=== PATIENT | female | born 1975 | race Hispanic/Latino ===

== ENCOUNTER 2018-12-29 10:07 | Emergency (ER) | payer SELFPAY ==
[2018-12-29 11:02] LABS: Bilirubin Negative (Negative); Blood, Urine Negative (Negative); Glucose, Urine (Dipstick) 500 mg/dL (Negative); Leukocyte Negative (Negative); Nitrite Negative (Negative); Protein, Urine (Dipstick) 30 mg/dL (Neg-Trace); Urobilinogen 0.2 mg/dL (0.2-1.0); pH, Urine 5.5 (5.0-9.0)
[2018-12-29 11:05] LABS: Clarity CLEAR (Clear)
[2018-12-29 11:06] LABS: Pregnancy Test - Urine (BHCG) Negative (Negative); Specific Gravity, Urine 1.031 (1.002-1.036)
[2018-12-29 11:07] LABS: Pregu Control Background? CLEAR/WHITE (CLR/WHITE); Pregu Control Bar Appear? YES (CONTROL BAR); Specific Gravity 1.031 (1.002-1.036)
[2018-12-29 11:09] LABS: Bacteria/HPF None Seen HPF (None Seen); RBC/HPF None Seen HPF (0-3); Squamous Epithelial 0-3 HPF (0-3); WBC/HPF None Seen HPF (0-3)
[2018-12-29 11:10] LABS: Hyaline Casts/LPF NONE SEEN LPF (0-3 Hyaline)
--- NOTE | 2018-12-29 11:51 | CT ---
CT ABDOMEN AND PELVIS PERFORMED WITHOUT CONTRAST ENHANCEMENT: Date: 12/29/18 HISTORY: Right flank pain. FINDINGS: The lung bases are clear of any infiltrative process. The liver, spleen, pancreas, and gallbladder regions appear unremarkable given the limitations of the noncontrast exam. Right and left adrenal glands, and right and left kidneys are normal in size. There are no signs of o bstruction. There are no renal or ureteral calculi identified. 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 There is no significant periaortic or mesenteric adenopathy. CT of pelvis was performed without contrast enhancement. The appendix is normal. No periappendiceal i nflammatory changes. No significant pelvic lymphadenopathy or mass. There is a marked scoliotic deformity to the spine. IMPRESSION: 1. No evidence of renal or ureteral calculi. No CT evidence for appendicitis. 2. Scoliosis. POS: [facility]
== END 2018-12-29 12:11 | disposition home or self-care (01) ==
LOC: ERS 10:07
DX: M54.5 Low back pain (principal); M54.6 Pain in thoracic spine; E11.9 Type 2 diabetes mellitus without complications; I10 Essential (primary) hypertension; Z79.899 Other long term (current) drug therapy; Z79.84 Long term (current) use of oral hypoglycemic drugs
CPT/HCPCS: 74176; 81003; 81015; 81025